=== PATIENT | male | born 1995 | race Caucasian/White ===

== ENCOUNTER 2016-11-07 11:02 | Emergency (ER) | payer OTHER ==
[2016-11-07 13:16] VITALS: BP 116/70
[2016-11-07 13:44] LABS: EBV Response YES
[2016-11-07 17:12] LABS: Manual Entry Verification MD; Mono Internal Control QC Line Present
[2016-11-09 16:02] LABS: EBV Capsid Ag IgG Ab Positive (Negative); EBV Capsid Ag IgM Ab Negative (Negative)
--- NOTE | 2016-11-10 07:45 | ED ---
Course/Dx - Course Course Of Treatment: EBV/MONO RESULTS REVIEWED; "RESULTS SUGGEST PAST INFECTION ", NO EVIDENCE AT THIS TIME FOR ACUTE MONO INFECTION. NURSING TO CALL PATIENT AND INFOR HIM OF RESULTS. - Diagnoses Provider Diagnoses: Pharyngitis
--- NOTE | 2016-11-25 11:54 | UC ---
Terri Eugene Alfonso, scribed for Shirley Bonilla MD on 11/07/16 at 1330 . Throat Pain/Nasal Jacob HPI - HPI Summary HPI Summary: This patient is a 21 year old M presenting to [facility] with a chief complaint of sore throat since two days ago. The patient rates the pain 5/10 in severity. Symptoms aggravated by nothing. Symptoms alleviated by nothing. Patient reports anxiety and migraine (yesterday and currently resolved). Patient denies rash. Patients medications reviewed this visit. Patients allergies reviewed this visit. - History of Current Complaint Chief Complaint: UCGeneralIllness Stated Complaint: SORE THROAT HEADACHE Time Seen by Provider: 11/07/16 12:46 Hx Obtained From: Patient Onset/Duration: Sudden Onset, Lasting Days - 2, Still Present Severity: Moderate Pain Intensity: 5 Pain Scale Used: 0-10 Numeric Associated Signs & Symptoms: Positive: Other - Patient reports anxiety and migraine (yesterday and currently resolved). Patient denies rash. - Allergies/Home Medications Allergies/Adverse Reactions: Allergies Allergy/AdvReac Type Severity Reaction Status Date / Time No Known Allergies Allergy Verified 01/25/15 09:01 PMH/Surg Hx/FS Hx/Imm Hx Previously Healthy: Yes - Surgical History Surgical History: None - Family History Known Family History: Positive: Other - Migraines mother - Social History Alcohol Use: Occasionally Substance Use Type: None Smoking Status (MU): Current Some Day Smoker - Immunization History Most Recent Influenza Vaccination: fall Review of Systems Skin: Other - Negative rash. ENT: Sore Throat Neurological: Other - Migraine Psychological: Anxious All Other Systems Reviewed And Are Negative: Yes Physical Exam Triage Information Reviewed: Yes Appearance: Well-Nourished Vital Signs: Initial Vital Signs Temp 98.4 F 11/07/16 12:25 Pulse 99 11/07/16 12:25 Resp 18 11/07/16 12:25 BP 138/73 11/07/16 12:25 Pulse Ox 99 11/07/16 12:25 Vital Signs Reviewed: Yes Eye Exam: Normal ENT: Positive: Other: - Erythematous tonsils. Purulence. Tonsils are equal. Uvula edematous Neck exam: Normal Neck: Positive: No Lymphadenopathy Respiratory Exam: Normal Respiratory: Positive: Other: - no dyspnea, no tachypnea, normal respiratory rate Cardiovascular: Positive: RRR, Other: - good general skin color, good capillary refill Abdomen Description: Positive: Nontender, No Organomegaly, Soft Bowel Sounds: Positive: Present Musculoskeletal Exam: Normal Musculoskeletal: Positive: Strength Intact Neurological Exam: Normal Neurological: Positive: Alert Psychological Exam: Normal Psychological: Positive: Age Appropriate Behavior Skin Exam: Normal Throat Pain/Nasal Course/Dx - Course Course Of Treatment: Reviewed rst results with pt. Reviewed s/sx and recommend follow pcp. Questions as posed answered to the best of my ability. - Differential Dx/Diagnosis Provider Diagnoses: non-strep acute pharyngitis Discharge - Discharge Plan Condition: Stable Disposition: HOME Prescriptions: Azithromyxin BRONSON (NF) [Z-Bronson (Zithromax) 250 mg tabs #6] 2 tab PO .TODAY, THEN 1 DAILY #6 tab Patient Education Materials: Pharyngitis (ED) Referrals: Teri Calix PA [Primary Care Provider] - Additional Instructions: Follow up with your primary care provider per routine. Seek medical attention for worse or new problems. Mononucleosis testing today (blood test). = Azithromycin - wait until tomorrow - if mono test negative and if you are not feeling better. The documentation as recorded by the Terri anton Alfonso accurately reflects the service I personally performed and the decisions made by me, Shirley Bonilla MD.
== END 2016-11-07 13:33 | disposition home or self-care (01) ==
LOC: UCEAST 11:02
DX: J02.9 Acute pharyngitis, unspecified (principal); Z11.4 Encounter for screening for human immunodeficiency virus [HIV]; Z72.0 Tobacco use
CPT/HCPCS: 36415; 86308; 86664; 86665; 86703; 87651; 99211; G0463